=== PATIENT | male | born 1940 | race Caucasian/White ===

== ENCOUNTER 2021-09-12 12:40 | Emergency (ER) | payer OTHER ==
[~2021-09-12] VITALS: Ht 180.3 cm; Wt 59.0 kg
[2021-09-12 12:45] VITALS: BP_SYST 145
--- NOTE | 2021-09-12 12:45 | NUR ---
Patient to ER bed 1 to gown for evaluation. Side rails up.
--- NOTE | 2021-09-12 12:50 | NUR ---
PT CAME IN FROM HOME C/O LEFT THUMB LAC, STATES HE CUT THUMB ON TABLE SAW, WRAPPED IN TOWEL AND CAME TO ER. SMALL AMOUNT OF BLEEDING UPON ARRIVAL CONTROLLED BY PRESSURE. PT IT AAOX4, V/S STABLE, AMBULATORY
--- NOTE | 2021-09-12 13:10 | NUR ---
ER DR. FORD AT THE BEDSIDE EXAMINING PT
[2021-09-12] MEDS ORDERED: LIDOCAINE 1% 10 MG/ML, 20 ML MDV INJ ONE (13:15)
[2021-09-12] MEDS ORDERED: DIPH-TET-PERTUS Vaccine 0.5 ML VIAL (ADACEL) I.M. ONE (13:15)
[2021-09-12] MEDS ORDERED: TRAM50TA2 PO (13:46)
[2021-09-12] MEDS ORDERED: CLIN300C12 PO (13:46)
--- NOTE | 2021-09-12 14:00 | NUR ---
Patient has a 2 cm laceration to LEFT THUMB. Dr. FORD applied sutures using sterile technique. Edges well approximated. Site cleansed with NS. Dressing of NON-STICK GAUZE WITH BACITRACIN applied to site. No bleeding noted. Pt tolerated well.
[2021-09-12] MEDS ORDERED: BACITRACIN 1 GM OINT TP ONE (14:04)
--- NOTE | 2021-09-12 14:25 | NUR ---
Patient given written and verbal discharge instructions and verbalizes understanding. ER MD discussed with patient the results and treatment provided. Patient in stable condition. ID arm band removed. Rx of CLINDAMYCIN AND ULTRAM given. Patient educated on pain management and to follow up with PMD. Pain Scale 0/10. Opportunity for questions provided and answered. Medication side effect fact sheet provided.
== END 2021-09-12 14:42 | disposition home or self-care (01) ==
LOC: SED 12:40
DX: S61.012A Laceration without foreign body of left thumb without damage to nail, initial encounter (principal); Z88.0 Allergy status to penicillin; Z79.899 Other long term (current) drug therapy; W45.8XXA Other foreign body or object entering through skin, initial encounter; Y93.89 Activity, other specified; Y92.89 Other specified places as the place of occurrence of the external cause; Y99.8 Other external cause status
CPT/HCPCS: 12002; 90471; 90715; 99283; J2001